=== PATIENT | male | born 1960 | race Caucasian/White ===

== ENCOUNTER 2022-12-11 00:44 | Emergency (ER) | payer OTHER, SELFPAY ==
[2022-12-11 00:48] VITALS: BP 185/112; PULSE 92; RESP 18; TEMP 36.6; O2SAT 97; BMI 32.7
--- NOTE | 2022-12-11 01:02 | PC.NURSE ---
pt presents to ED because his left nostril started bleeding at 5pm pt states that he was able to stop the nose bleed. pt states started back up at 11pm and hasn't stopped since. doesn't take blood thinners. hx of hypertension and states he did take his bp meds today. bp high on arrival. nose bleed has come to a stop on arrival. nasal clamp given to pt
--- NOTE | 2022-12-11 01:21 | ED_ITS ---
HPI - Epistaxis General Chief Complaint: Epistaxis Stated Complaint: NOSE BLEED FOR A COUPLE HOURS Time Seen by Provider: 12/11/22 01:04 Source: patient Mode of arrival: walk-in Limitations: no limitations History of Present Illness HPI Narrative: presents with nose bleed. no injury. no headache. Stopped earlier but then restarted again tonight. has stop again now that he is here Related Data Allergies Allergy/AdvReac Type Severity Reaction Status Date / Time No Known Drug Allergies Allergy Verified 12/11/22 00:50 Review of Systems ROS Status of ROS 10 or more systems reviewed and unremarkable except as noted in history and below Exam Constitutional Vital Signs, click to edit/add: Last Vital Signs Temp 97.9 F 12/11/22 00:48 Pulse 92 H 12/11/22 00:48 Resp 18 12/11/22 00:48 BP 151/97 H 12/11/22 02:10 Pulse Ox 97 12/11/22 00:48 O2 Del Method Room Air 12/11/22 00:48 Common normals: no apparent distress, average body habitus, oriented x3 and healthy appearing HENCO Common normals: normocephalic and external nose normal Other: no active bleeding of his nose Eye Common normals: EOMs intact bilaterally and conjunctivae normal Respiratory Common normals: normal respiratory effort, no retractions, no use of accessory muscles and clear to auscultation bilaterally Cardio Common normals: regular rhythm, S1 normal heart sound and S2 normal heart sound Extremity Common normals: normal to inspection, normal capillary refill and no joint enlargement Neuro Common normals: oriented x3, moves all extremities and no focal motor deficits Psych Appearance: grossly normal Course Vital Signs Vital signs: Vital Signs Temperature 97.9 F 12/11/22 00:48 Pulse Rate 92 H 12/11/22 00:48 Respiratory Rate 18 12/11/22 00:48 Blood Pressure 185/112 H 12/11/22 00:48 Pulse Oximetry 97 12/11/22 00:48 Oxygen Delivery Method Room Air 12/11/22 00:48 Temperature 97.9 F 12/11/22 00:48 Pulse Rate 92 H 12/11/22 00:48 Respiratory Rate 18 12/11/22 00:48 Blood Pressure 151/97 H 12/11/22 02:10 Pulse Oximetry 97 12/11/22 00:48 Oxygen Delivery Method Room Air 12/11/22 00:48 MDM - Epistaxis MDM Narrative Medical decision making narrative: patient presents with epistaxis. now that he is here there is no more bleeding. labs unremarkable. BP was elevated on arrival but this also improved without intervention. Patient discharged home in stable condition Lab Data Labs: Lab Results 12/11/22 Range/Units 01:30 WBC 7.0 (4.0-11.0) 10^3/uL RBC 5.27 (4.70-6.10) 10^6/uL Hgb 15.8 (14.0-18.0) g/dL Hct 46.8 (42.0-54.0) % MCV 88.8 (80.0-94.0) fL MCH 30.0 (25.9-34.0) pg MCHC 33.8 (29.9-35.2) g/dL RDW 14.0 (11.0-15.0) % Plt Count 177 (150-450) 10^3/uL MPV 10.6 (9.5-13.5) fL Neut % (Auto) 45.3 (43.0-75.0) % Lymph % (Auto) 34.0 (20.5-60.0) % [place] % (Auto) 11.6 (1.7-12.0) % Eos % (Auto) 8.2 H (0.9-7.0) % Baso % (Auto) 0.6 (0.2-2.0) % Neut # (Auto) 3.2 (1.4-6.5) 10^3/uL Lymph # (Auto) 2.4 (1.2-3.8) 10^3/uL [place] # (Auto) 0.8 (0.3-0.8) 10^3/uL Eos # (Auto) 0.6 (0.0-0.7) 10^3/uL Baso # (Auto) 0.0 (0.0-0.1) 10^3/uL Abs Immat Gran (auto) 0.02 (0.00-0.03) 10^3/uL Imm/Tot Granulo (auto) 0.3 (0.0-0.5) % Sodium 139 (136-145) mmol/L Potassium 3.5 (3.5-5.1) mmol/L Chloride 103 (98-107) mmol/L Carbon Dioxide 28.1 (21.0-32.0) mmol/L Anion Gap 11.4 BUN 18.0 (7.0-18.0) mg/dL Creatinine 1.17 (0.70-1.30) mg/dL Est GFR ( Amer) >60 (>=60) Est GFR (Non-Af Amer) >60 (>=60) BUN/Creatinine Ratio 15.4 Glucose 143 H (74-106) mg/dL Calcium 8.8 (8.5-10.1) mg/dL Discharge Plan Discharge Chief Complaint: Epistaxis Clinical Impression: Epistaxis Patient Disposition: Home, Self-Care Instructions: Nosebleed (ED) Stand Alone Forms: Portal Instructions Referrals: Physician,Non-Staff, MD [Primary Care Provider] - 1 week
[2022-12-11 01:30] VITALS: BP 154/99
[2022-12-11 01:37] LABS: Basophils Percent Auto 0.6 % (0.2-2.0); Eosinophils Absolute Auto 0.6 10^3/uL (0.0-0.7); Eosinophils Percent Auto 8.2 % (0.9-7.0); Hematocrit 46.8 % (42.0-54.0); Hemoglobin 15.8 g/dL (14.0-18.0); Immature Granulocytes Abs Auto 0.02 10^3/uL (0.00-0.03); Immature Granulocytes Pct Auto 0.3 % (0.0-0.5); Lymphocytes Absolute Auto 2.4 10^3/uL (1.2-3.8); Mean Corpuscular HGB Conc 33.8 g/dL (29.9-35.2); Mean Corpuscular Volume 88.8 fL (80.0-94.0); Mean Platelet Volume 10.6 fL (9.5-13.5); Monocytes Absolute Auto 0.8 10^3/uL (0.3-0.8); Monocytes Percent Auto 11.6 % (1.7-12.0); Neutrophils Absolute Auto 3.2 10^3/uL (1.4-6.5); Neutrophils Percent Auto 45.3 % (43.0-75.0); Platelet Count 177 10^3/uL (150-450); Red Blood Count 5.27 10^6/uL (4.70-6.10)
[2022-12-11 01:46] LABS: Anion Gap 11.4; BUN Creatinine Ratio 15.4; Calcium 8.8 mg/dL (8.5-10.1); Carbon Dioxide 28.1 mmol/L (21.0-32.0); Chloride 103 mmol/L (98-107); Estimated GFR (African America >60 (>=60); Estimated GFR (Non-African Ame >60 (>=60); Glucose 143 mg/dL (74-106); Potassium 3.5 mmol/L (3.5-5.1); Sodium 139 mmol/L (136-145)
[2022-12-11 02:10] VITALS: BP 151/97
== END 2022-12-11 02:41 | disposition home or self-care (01) ==
PROVIDERS: Emergency Provider Internal Medicine
DX: R04.0 Epistaxis (principal)
CPT/HCPCS: 36415; 80048; 85025; 99283